=== PATIENT | male | born 1980 | race Caucasian/White ===

== ENCOUNTER 2021-05-06 12:05 | Emergency (ER) | payer OTHER ==
[~2021-05-06] VITALS: Ht 172.7 cm; Wt 77.1 kg
[2021-05-06] MEDS ORDERED: ZPAK PO (12:38)
[2021-05-06] MEDS ORDERED: PROMETH-CODEIN 65 ML PO (12:38)
[2021-05-06] MEDS ORDERED: TESSALON PERLE100 MG PO (12:38)
[2021-05-06] MEDS ORDERED: DEXAMETHASONE 44 M1 PO (12:38)
[2021-05-06 12:46] VITALS: BP 114/68
== END 2021-05-06 12:49 | disposition home or self-care (01) ==
LOC: M.ERS 12:05
DX: U07.1 COVID-19 (principal)